=== PATIENT | male | born 1950 | race Caucasian/White ===

== ENCOUNTER 2016-08-25 08:06 | Day surgery (SDC) | payer OTHER ==
--- NOTE | 2016-08-24 10:13 | PREOPHP ---
DATE OF ADMISSION: 08/25/2016 HISTORY OF PRESENT ILLNESS: A 65-year-old male patient initially seen in the office 04/2014 with a long history of smoking and vocal cord polyps. He was taken to surgery 04/2014, at which time a dir ect microscopic laryngoscopy was performed with removal of vocal polyps. 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 The patient, however, has continued to smoke despite counseling and has recurrent vocal cord polyps at this time. He is now admitted to [facility] for a repeat direct microscopic laryngoscopy and biopsy. He has been cleared for surger y by Dr. Jackson. ALLERGIES: NONE. PAST MEDICAL HISTORY: Medical problems: High cholesterol, blood pressure. MEDICATIONS: 1. . 2. Spironolactone 3. Lisinopril. 4. Ramipril. PAST SURGICAL HISTORY: See HPI and appendectomy. CLOTTING DISORDERS: None. HABITS: Alcohol social. Tobacco see HPI. Recreational drugs none. FAMILY HISTORY: Negative. REVIEW OF SYSTEMS: Negative. PHYSICAL EXAMINATION GENERAL: Somewhat obese male patient with a hoarse voice, in no acute distress. HEENT: Head normocephalic. No masses or deformities. Ears and tympanic membranes normal. Nose c lear. Oropharynx: Generalized oropharyngeal mucositis. Larynx by mirror examination demonstrates normal vocal cord mobility with vocal cord polyps noted bilaterally. NECK: No masses or adenopathy. CHEST: Clear to P and A. HEART: Regular sinus rhythm without murmur. ABDOMEN: Soft, bowel sounds normal. No masses or megaly. EXTREMITIES: Full range of motion without deformity. NEUROLOGIC: Physiologic. RECTAL: Not done. IMPRESSION: Vocal cord polyps. RECOMMENDATIONS: Admit for surgery. Dictated By: DENNIS MOFFETT MD SC/NTS Conf#: [id number] DID#: [id number]
[~2016-08-25] VITALS: Ht 160 cm; Wt 110.6 kg
[2016-08-25] VITALS (8 sets, daily range): BP systolic 116–134; BP diastolic 58–80; PULSE 88–96; RESP 16–18; Ht 160 cm; Wt 110.6 kg
[~2016-08-25 08:06] MED LIST: ACET-141 PO; COU75 PO; FURO80TA3 PO; ISOS30TA5 PO; LISI-313 PO; METF-382 PO; METO50TA16 PO; POTA-57 PO; SPIR25TA PO; UDMOM PO; ZOC20 PO
--- NOTE | 2016-08-25 08:43 | HPN ---
Date/Time of Note Date/Time of Note DATE: 08/25/16 TIME: 08:42 Interval H&P Admission Note Pt. seen H&P reviewed: No system changes DENNIS MOFFETT MD Aug 25, 2016 08:43
[2016-08-25 09:45] LABS: INR 1.16; PROTIME 14.9 Sec (12.2-14.2); PT RATIO 1.2
[2016-08-25 09:46] LABS: PARTIAL THROMBOPLASTIN TIME 30.5 Sec (25.0-35.0)
[2016-08-25] MEDS ORDERED: LIDOCAINE 2% (SDV) 5 ML INJ ONE (10:08)
[2016-08-25] MEDS ORDERED: SUCCINYLCHOLINE CHLORIDE 100 MG/5 ML SYG IV ONE (10:08)
[2016-08-25] MEDS ORDERED: ROCURONIUM 50 MG INJ ONE (10:08)
[2016-08-25] MEDS ORDERED: NEOSTIGMINE 3 MG/3 ML SYRINGE ONE (10:08)
[2016-08-25] MEDS ORDERED: GLYCOPYRROLATE 0.4 MG INJ ONE (10:08)
[2016-08-25] MEDS ORDERED: PROPOFOL 20 ML ONE (10:08)
[2016-08-25] MEDS ORDERED: COCAINE 4% 4 ML TOP ONE (10:16)
[2016-08-25] MEDS ORDERED: ONDANSETRON 4 MG INJ IV PRN (11:30)
[2016-08-25] MEDS ORDERED: METOCLOPRAMIDE 10 MG INJ IV PRN (11:30)
[2016-08-25] MEDS ORDERED: DIPHENHYDRAMINE 50 MG INJ IV PRN (11:30)
[2016-08-25] MEDS ORDERED: FENTAnyl 50 MCG/ML VIAL IV PRN ×2 (11:30)
[2016-08-25] MEDS ORDERED: MIDAZOLAM 1 MG/ML 2 ML INJ IV PRN (11:30)
[2016-08-25] MEDS ORDERED: MEPERIDINE 25 MG INJ IV PRN (11:30)
[2016-08-25] MEDS ORDERED: HYDROCODONE/APAP (7.5/325) TAB PO PRN (12:30)
--- NOTE | 2016-08-25 12:39 | OPR ---
DATE OF OPERATION: 08/25/2016 PREOPERATIVE DIAGNOSIS: Vocal cord polyps. POSTOPERATIVE DIAGNOSIS: Vocal cord polyps. PROCEDURE PERFORMED: Direct microscopic laryngoscopy with removal of vocal cord polyps. SURGEON: Gomez Moffett MD DESCRIPTION OF PROCEDURE: The patient brought to the operating room. Under parenteral sedation, ge neral oral endotracheal anesthesia with the patient in the supine position, sterile sheets and drape s applied. Jako microlaryngoscope was inserted. Base of tongue, vallecula false cords and piriform sinuses were clear. Vocal cord mobility had been assessed preoperatively as normal. Then, 5% cott onoid cocaine was applied to the glottis. Vocal cord polyps were noted bilaterally and these were r emoved and biopsied with cup forceps and sent for pathologic evaluation. The patient was then suctioned. The surgical field was dry. The patient was awakened and extubated in the operating room, returned to recovery in excellent condition. ESTIMATED BLOOD LOSS: Nil. COMPLICATIONS: None. Dictated By: GOMEZ MOFFETT MD SC/NTS Conf#: [id number] DID#: [id number]
== END 2016-08-25 12:35 | disposition home or self-care (01) ==
LOC: SDS 08:06
PROVIDERS: ATTEND Otolaryngology Otolaryngology/Facial Plastic Surgery
DX: J38.1 Polyp of vocal cord and larynx (principal); I25.10 Atherosclerotic heart disease of native coronary artery without angina pectoris; E78.5 Hyperlipidemia, unspecified; I10 Essential (primary) hypertension; E66.01 Morbid (severe) obesity due to excess calories; Z68.41 Body mass index [BMI] 40.0-44.9, adult; Z95.1 Presence of aortocoronary bypass graft
CPT/HCPCS: 31541; 82962; 85610; 85730; 88305; J0330; Z7512; Z7610; J2710